=== PATIENT | female | born 1985 | race American Indian/Alaskan Native ===

== ENCOUNTER 2018-07-16 17:19 | Emergency (ER) | payer SELFPAY ==
[2018-07-16 17:27] VITALS: BP 122/59
[2018-07-16] MEDS ORDERED: Tetracaine HCl/PF 0.5% 4 ML Bottle EYEBOTH ONE (17:33)
[2018-07-16] MEDS ORDERED: Gentamicin 0.3% Ophth Soln 5 ML Bottle EYEBOTH ONE (17:34)
[2018-07-16] MEDS ORDERED: Fluorescein 1 MG Ophth Strip EYEBOTH ONE (17:35)
[2018-07-16] MEDS ORDERED: Acetaminophen/HYDROcodone 325-10 MG Tab PO ONE (17:48)
--- NOTE | 2018-07-16 18:01 | EDM.PDOC ---
Scribed by Donna Ellis 07/16/18 2882 for Nickolas Patricia MD ED HPI GENERAL MEDICAL PROBLEM - General Chief Complaint: Eye Problems Stated Complaint: CONTACT STUCK IN EYE Time Seen by Provider: 07/16/18 17:23 Source of Information: Reports: Patient, RN, RN Notes Reviewed History Limitations: Reports: No Limitations - History of Present Illness INITIAL COMMENTS - FREE TEXT/NARRATIVE: Patient presents to ER with complaint of contact lens stuck in both eyes overnight. Patient states that she obtained some blue tinted contacts from a cousin and decided to try them. she does not have a prescription for vision correction. She believes the contacts were to be worn during the day and removed each evening, but she fell asleep and forgot to remove them. She states that she dug after them and rubbed her eye excessively but could not fine the contacts. She now presents with eye irritation, swelling and pain. Quality: Reports: Ache, Burning Severity: Severe Improves with: Reports: None Worsens with: Reports: None Associated Symptoms: Reports: No Other Symptoms - Related Data Allergies Allergy/AdvReac Type Severity Reaction Status Date / Time No Known Allergies Allergy Verified 07/16/18 17:24 Home Meds: Home Meds . [No Known Home Meds] 07/16/18 [History] Social & Family History - Family History Family Medical History: Noncontributory - Living Situation & Occupation Living situation: Reports: with Family ED ROS GENERAL - Review of Systems Review Of Systems: ROS reveals no pertinent complaints other than HPI. ED EXAM GENERAL W FULL EYE - Physical Exam Exam: See Below Exam Limited By: No Limitations General Appearance: Alert, WD/WN, Anxious, Other (tearful) Eye Exam: Bilateral Eye: Conjunctival Injection, Corneal Abrasion, EOMI, PERRL, Other (patient unable to cooperate with visual acuity exam) Eyelids: Bilateral: Edema (bilateral upper and lower lid inflammation with pink/ mild erythema secondary to excessive rubbing), Lid Everted for Exam Conjunctiva & Sclera: Bilateral: Conjunctival Edema, Discharge (clear watery discharge), Injected, Other (no contact lens or other foreign body was found) Cornea Exam: Bilateral: Corneal Abrasion, Examined with Flourescein Extraocular Movements: Bilateral: Intact Pupils: Normal Accommodation Pupillary Size: Bilateral: 3 mm Posterior Chamber: Bilateral: Unable to Examine Nose: Normal Inspection Throat/Mouth: Normal Inspection Head: Atraumatic, Normocephalic Respiratory/Chest: No Respiratory Distress Neurological: Alert, Oriented, CN II-XII Intact, Normal Cognition, No Motor/ Sensory Deficits Psychiatric: Anxious Course - Vital Signs Last Recorded V/S: Last Vital Signs Temp 36.0 C 07/16/18 17:26 Pulse 108 H 07/16/18 17:26 Resp 15 07/16/18 17:26 BP 122/59 L 07/16/18 17:26 Pulse Ox 100 07/16/18 17:26 - Orders/Labs/Meds Meds: Medications Discontinued Medications Generic Name Dose Route Start Last Admin Trade Name Freq PRN Reason Stop Dose Admin Hydrocodone Bitart/Acetaminophen 1 tab 07/16/18 17:48 07/16/18 18:00 [place] 325-10 Mg PO 07/16/18 17:49 Not Given ONETIME ONE Fluorescein Sodium 1 mg 07/16/18 17:35 07/16/18 17:40 Ful-Aminta EYEBOTH 07/16/18 17:36 1 mg ONETIME ONE Administration Gentamicin Sulfate 1 ml 07/16/18 17:34 07/16/18 17:38 Garamycin 0.3% Ophth Soln EYEBOTH 07/16/18 17:35 1 ml ONETIME ONE Administration Tetracaine HCl 1 ml 07/16/18 17:33 07/16/18 17:38 Tetracaine 0.5% Steri-Unit Sarina EYEBOTH 07/16/18 17:34 1 ml ONETIME ONE Administration Departure - Departure Time of Disposition: 17:47 Disposition: Home, Self-Care 01 Condition: Fair Clinical Impression: Contact lens stuck, Episcleritis of both eyes Corneal abrasion Qualifiers: Encounter type: initial encounter Laterality: unspecified laterality Qualified Code(s): S05.00XA - Injury of conjunctiva and corneal abrasion without foreign body, unspecified eye, initial encounter - Discharge Information Instructions: Corneal Abrasion, Scleritis and Episcleritis Forms: ED Department Discharge Additional Instructions: RX: [place] 5mg/325mg.*DO NOT DRIVE WHILE UNDER THE INFLUENCE OF THIS MEDICATION. Gentamicin 0.3% opthalmic solution one drop into each eye 4 times a day for 5 days. Tetracaine opthalmic solution 1 drop into each eye every 4 hours as needed for pain. Do not use for more than 24 hours. [facility] [phone]. Do not rub your eyes. Wear sunglasses and avoid long light exposure. I have read and agree with the documentation that has been completed regarding this visit. By signing this record, I attest that the documentation was completed in my physical presence and is an accurate record of the encounter.
== END 2018-07-16 17:56 | disposition home or self-care (01) ==
LOC: DL.ED 17:19
DX: H18.823 Corneal disorder due to contact lens, bilateral (principal); H15.103 Unspecified episcleritis, bilateral; W22.8XXA Striking against or struck by other objects, initial encounter
CPT/HCPCS: 99283; A9270

== ENCOUNTER 2019-02-06 22:20 | Observation (INO) | payer SELFPAY ==
--- NOTE | 2019-02-06 22:48 | PCM.LDHP ---
L&D History of Present Illness - General Date of Service: 02/06/19 Admit Problem/Dx: Admission Diagnosis/Problem Admission Diagnosis/Problem Source of Information: Patient History Limitations: Reports: No Limitations - History of Present Illness Introduction:: 33-year-old at 37w1d (per 36 week ultrasound) from the [facility] with concerns for leaking of fluid. Patient has not had any regular care with this . She was seen on L&D on 01/29/2019 for [facility] clearance. At that time, her IOB labs were drawn and an ultrasound was done. Her last 3 babies were delivered via section. She does not have custody of any of her children. She admits to methamphetamine use during this . At her last visit, patient was noted to have BV and was prescribed Flagyl for 7 days. Patient is unsure if she has received this while in [facility]. She also tested positive for chlamydia. She is certain she has not received any shots for treatment. She also was positive for HCV. Patient states she has been negative in the past. She is also positive for GBS. Patient states that she has been using methamphetamine intermittently over the past several months to help her cope with having her children taken away. She states she was using 0-2 times per week. She denies any other drug use during this but admitted to THC use at her last visit. Patient states that she has noticed increased "leaking" over the past week. She states she mentioned this several times in [facility] but was not taken to the clinic so reported her water may have broken and was taken in tonight. Baby has been active. She has had some increased back pain over the past couple of weeks. No contractions. No vaginal bleeding. Patient does note that she is strongly considering giving her baby up for adoption but has not been able to meet with psychosocial rehabilitation counselor while incarcerated. - Related Data Allergies/Adverse Reactions: Allergies Allergy/AdvReac Type Severity Reaction Status Date / Time No Known Allergies Allergy Verified 02/06/19 22:33 Home Medications: Home Meds . 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: Musculoskeletal History: Reports: None Neurological History: Reports: None Psychiatric History: Reports: None Endocrine/Metabolic History: Reports: None Hematologic History: Reports: None Immunologic History: Reports: None Oncologic (Cancer) History: Reports: None Dermatologic History: Reports: None - Infectious Disease History Infectious Disease History: Reports: None - Past Surgical History Head Surgeries/Procedures: Reports: None Female Surgical History: Reports: Section Social & Family History - Family History Family Medical History: Noncontributory - Caffeine Use Caffeine Use: Reports: Coffee, Energy Drinks - Recreational Drug Use Recreational Drug Use: Yes Drug Use in Last 12 Months: Yes Recreational Drug Type: Reports: Amphetamines (Speed) Recreational Drug Use Frequency: Weekly Recreational Drug Route: Reports: Inhaled, Intravenous - Sexual History Sexual History: Reports: Multiple Partners, Sexually Active - Living Situation & Occupation Living situation: Reports: Other (Currently incarcerated; was in [place] working on obtained permanent housing) Occupation: Unemployed H&P Review of Systems - Review of Systems: Review Of Systems: See Below General: Reports: Fatigue HEENT: Reports: No Symptoms Pulmonary: Reports: No Symptoms Cardiovascular: Reports: No Symptoms Gastrointestinal: Reports: No Symptoms Genitourinary: Reports: Discharge Musculoskeletal: Reports: Back Pain Skin: Reports: No Symptoms L&D Exam - Exam Exam: See Below - OB Specific Heart Tones per Min: 140 Presentation: Vertex - Contreras Score Contreras Score Cervix Position: Posterior Contreras Score Consistency: Soft Contreras Score Effacement: 31-50% Contreras Score Dilation: Closed Contreras Score 's Station: -2 Contreras Score Total: 4 - Exam General: Alert, Oriented HEENT: Mucosa Moist & [place], Posterior Pharynx Clear Lungs: Clear to Auscultation, Normal Respiratory Effort Cardiovascular: Regular Rate, Regular Rhythm. No: Systolic Murmur, Diastolic Murmur Genitourinary: Normal external exam Extremities: No Pedal Edema Skin: Warm, Dry, Intact - Problem List (1) History of delivery SNOMED Code(s): 308938461 ICD Code: Z98.891 - HISTORY OF UTERINE SCAR FROM PREVIOUS SURGERY Status: Acute Current Visit: Yes (2) with plans to adopt out baby SNOMED Code(s): 57037340 ICD Code: Z34.90 - ENCNTR FOR SUPRVSN OF NORMAL , UNSP, UNSP TRIMESTER Status: Acute Current Visit: Yes (3) Grand multipara in labor in third trimester SNOMED Code(s): 758541412, 231148059 ICD Code: O09.43 - SUPRVSN OF W GRAND MULTIPARITY, THIRD TRIMESTER Status: Acute Current Visit: Yes (4) Chlamydia infection affecting in third trimester SNOMED Code(s): 3117724359956 ICD Code: O98.813 - OTH MATERNAL INFEC/PARASTC DISEASES COMP PREG, THIRD TRI ; A74.9 - CHLAMYDIAL INFECTION, UNSPECIFIED Status: Acute Current Visit: Yes (5) HCV antibody positive SNOMED Code(s): 824166280 ICD Code: R76.8 - OTHER SPECIFIED ABNORMAL IMMUNOLOGICAL FINDINGS IN SERUM Status: Acute Current Visit: Yes (6) GBS (group B Streptococcus carrier), +RV culture, currently SNOMED Code(s): 3368081867572, 612631886, 1487201443382 ICD Code: O99.820 - STREPTOCOCCUS B CARRIER STATE COMPLICATING Status: Acute Current Visit: Yes (7) Rubella immune SNOMED Code(s): 671999785 ICD Code: Z78.9 - OTHER SPECIFIED HEALTH STATUS Status: Acute Current Visit: Yes (8) care: poor obstetric history SNOMED Code(s): 185722241 ICD Code: O09.299 - SUPRVSN OF PREG W POOR REPRODCTV OR OBSTET HISTORY, UNSP TRI Status: Acute Current Visit: No (9) Bacterial vaginosis SNOMED Code(s): 386263830 ICD Code: N76.0 - ACUTE VAGINITIS; B96.89 - OTH BACTERIAL AGENTS THE CAUSE OF DISEASES CLASSD ELSWHR Status: Acute Current Visit: No (10) Drug use affecting in third trimester SNOMED Code(s): 54394049, 80217091, 101531413 ICD Code: O99.323 - DRUG USE COMPLICATING , THIRD TRIMESTER Status : Acute Current Visit: No Problem List Initiated/Reviewed/Updated: Yes Assessment/Plan Comment:: 33-year-old at 37w1d (per 36 week ultrasound) presenting with concern for vaginal leaking Nitrazine was negative on examination. I suspect that discharge is due to normal discharge, BV, chlamydia. Wet prep and urinalysis were obtained. FHT Category 2 but reassuring. Will treat with 1 gram oral azithromycin and 250 mg IM Rocephin. Will given 1 L LR IV and monitor baby. No contractions noted so not in active labor. Will monitor overnight and contact psychosocial rehabilitation counselor in the morning. Angelique Kahn MD
[2019-02-06] MEDS ORDERED: Lactated Ringers 1,000 ML IV ONE (23:07)
[2019-02-06] MEDS ORDERED: Sodium Chloride 0.9% 10 ML Syringe FLUSH PRN (23:07)
[2019-02-06] MEDS ORDERED: Azithromycin 250 MG Tab PO ONE (23:13)
[2019-02-06] MEDS ORDERED: cefTRIAXone 250 MG, Lidocaine 1% 0.9 ML IM ONE ×2 (23:13)
[2019-02-06] MEDS ORDERED: Acetaminophen 325 MG Tab PO PRN (23:13)
[2019-02-06] MEDS ORDERED: hydrOXYzine HCl 25 MG Tab PO ONE (23:13)
[2019-02-06] MEDS ORDERED: Lactated Ringers 1,000 ML IV SCH (23:15)
[2019-02-07] MEDS ORDERED: metroNIDAZOLE 250 MG Tab PO SCH (09:00)
[2019-02-07 09:04] VITALS: BP 110/60
--- NOTE | 2019-02-08 13:45 | DISCH ---
ADMITTING DIAGNOSES: 1. History of section. 2. with plan to adopt out baby. 3. Grand multipara in labor in third trimester. 4. Chlamydia infection affecting in third trimester. 5. HCV antibody positive. 6. GBS positive, currently . 7. Rubella immune. 8. care for obstetrical history. 9. Bacterial vaginosis. 10.Drug use affecting in third trimester. 11. 9, para 8-0-0-7, estimated date of conception 02/25/2019, via ultrasound in January. She is noted to be 37 weeks 2 days' gestation per 36 week ultrasound. DISCHARGE DIAGNOSES: 1. History of section. 2. with plan to adopt out baby. 3. Chlamydia infection affecting in third trimester. 4. HCV antibody positive. 5. GBS positive, currently . 6. Rubella immune. 7. care for obstetrical history. 8. Bacterial vaginosis. 9. Drug use affecting in third trimester. 10. 9, para 8-0-0-7, estimated date of conception 02/25/2019, via ultrasound in January. She is noted to be 37 weeks 2 days' gestation per 36 week ultrasound. BRIEF HISTORY: The patient is a 33-year-old, 9, para 8, at 37 week 1 day gestation, who presented from [facility] with concerns of leakage of fluid. The patient has not had any regular care. She was seen by Labor and Delivery on 01/29/2019 for [facility] clearance. At that time, her initial OB labs were drawn and ultrasound was done. Her previous 3 babies were delivered via C- section. She does not have custody of any of her children. She admits to methamphetamine use during this . At the prior visit, she was noted to have BV and was prescribed Flagyl for 7 days. She is also tested positive for chlamydia. She is also had an HCV positive antibody screen as well as tested positive GBS positive during this . The patient also has reported use of methamphetamine intermittently during this and denies all other drug use, but did admit to THC use at her last visit. Upon admission, she states that she had noticed increased leaking over the past week and mentioned this several times in [facility], but was not taken to the clinic, so she told them that her water broke and was taken last night. She endorses active movement. She has also noticed some increased back pain, but denies contractions or vaginal bleeding. HOSPITAL COURSE: The patient was admitted for observation overnight. Overnight, patient did well. The patient endorses active movement, no contractions, no recurrence of leakage or vaginal bleeding. She does endorse able to tolerate ambulation, eating general diet appropriate, stooling and urination. She denies any fevers, chills, chest pain, headache, shortness of breath, continued abdominal pain. She does endorse some trace swelling in her ankles bilaterally. DISCHARGE CONDITION: Good. DISCHARGE PHYSICAL EXAMINATION: Vital Signs: Temp 98.2, HR 84 BPM, BP 110/60, RR 18 breaths per minute, O2 sat 97% on room air. HEENT: Grossly normal. Pupils equal, round, and reactive to light and extraocular movements intact. Pulmonary: Lungs are clear to auscultation bilaterally. Cardiovascular: Regular rate and rhythm. No murmurs noted. Abdomen: Soft, nontender, and nondistended. Gravid uterus palpated about 36 cm above the umbilicus. Extremities: Trace swelling noted in lower extremities bilaterally. Denies tenderness to palpation of calves bilaterally. Skin: No rashes noted. Neurologic: Grossly normal. LABORATORY DATA: Recent lab results: Urinalysis: Color yellow, appearance slightly cloudy, pH 8, specific gravity 1.015, protein negative, glucose negative, ketones negative, occult blood negative, nitrite negative, bilirubin negative, urobilinogen 1, leukocyte esterase moderate, RBC not seen, WBC 5-10, epithelial cells moderate, bacteria moderate. Clue cells are present. Toxicology: Completely negative. Clue cells are present. DISPOSITION: Discharge home. DISCHARGE MEDICATION: Flagyl 500 mg b.i.d. FOLLOWUP: The patient was instructed to follow up with Dr. Angelique Kahn on February 10 at 1:30 p.m. She is instructed to arrive at 1:00 p.m. The patient's questions were answered, and she is in agreement with this plan. Social work was consulted to work with patient to arrange possible adoption. The patient was seen and evaluated today by myself and Dr. Angelique Kahn. Discharge evaluation is under advisement of Dr. Angelique Kahn. MODL /[id number] Patient was personally seen and examined with the medical student. I reviewed the noted scribed on my behalf and necessary changes have been made to reflect my opinion on the history, exam, assessment, and plan. Angelique Kahn MD [facility]ITAL[facility]
== END 2019-02-07 10:45 | disposition home or self-care (01) ==
LOC: DL.OBCHECK 22:20 → DL.MS 22:52 → DL.OB 22:56
PROVIDERS: ADMIT Family Medicine; ATTEND Family Medicine
DX: O98.813 Other maternal infectious and parasitic diseases complicating pregnancy, third trimester (principal); A74.9 Chlamydial infection, unspecified; O99.820 Streptococcus B carrier state complicating pregnancy; O98.513 Other viral diseases complicating pregnancy, third trimester; Z3A.37 37 weeks gestation of pregnancy; O99.323 Drug use complicating pregnancy, third trimester; F15.90 Other stimulant use, unspecified, uncomplicated
CPT/HCPCS: 80305; 81001; 87210; 87522; A9270; J0696; J7050; J7120; 36415

== ENCOUNTER 2019-02-24 19:54 | Inpatient (IN) | payer MEDICAID ==
[2019-02-24] MEDS: Lactated Ringers 1,000 ML IV SCH ×2 (20:20→21:05)
[2019-02-24] MEDS ORDERED: ceFAZolin 2 GM in Premix Bag 1 BAG IV ONE (20:29)
[2019-02-24] MEDS ORDERED: Citric Acid/Sodium Citrate Solution 30 ML Cup PO ONE (20:29)
[2019-02-24] MEDS ORDERED: Sodium Chloride 0.9% 10 ML Syringe FLUSH PRN (20:29)
[2019-02-24] MEDS ORDERED: Tranexamic Acid 1,000 MG in Sodium Chloride 0.9% 100 ML IV PRN ×2 (20:29→22:42)
[2019-02-24] MEDS ORDERED: Oxytocin/Normal Saline 30 UNIT/500 ML BAG IV SCH (20:30)
[2019-02-24] MEDS ORDERED: Lactated Ringers 1,000 ML IV SCH (20:30)
[2019-02-24] MEDS ORDERED: Oxytocin/Normal Saline 60 UNIT/1,000 ML BAG ONE (21:01)
[2019-02-24] MEDS ORDERED: Ondansetron 4 MG/2 ML SDV IV PRN (22:42)
[2019-02-24] MEDS ORDERED: Acetaminophen 325 MG Tab PO PRN (22:42)
[2019-02-24] MEDS ORDERED: ePHEDrine 50 MG/ML SDV IVPUSH PRN (22:42)
[2019-02-24] MEDS ORDERED: Misoprostol 400 MCG (4 X 100 MCG TAB) RECTAL PRN (22:42)
[2019-02-24] MEDS ORDERED: Naloxone 2 MG/2 ML Syringe IVPUSH PRN (22:42)
[2019-02-24] MEDS ORDERED: diphenhydrAMINE 50 MG/ML SDV IVPUSH PRN (22:42)
[2019-02-24] MEDS ORDERED: Carboprost Tromethamine 250 MCG/1 ML Amp IM ONE (22:42)
[2019-02-24] MEDS ORDERED: Acetaminophen/oxyCODONE 325-5 MG Tab PO PRN (22:42)
[2019-02-24] MEDS ORDERED: Methylergonovine 0.2 MG/1 ML Amp IM PRN (22:42)
[2019-02-24] MEDS ORDERED: Ketorolac 30 MG/ML SDV IVPUSH SCH (22:45)
[2019-02-24] MEDS ORDERED: Misoprostol 400 MCG (4 X 100 MCG TAB) ONE (22:56)
--- NOTE | 2019-02-25 00:34 | HP ---
CHIEF COMPLAINT: Rupture of membranes. HISTORY OF PRESENT ILLNESS: Laura is a 33-year-old female, -0-0-7, at 38 weeks and 6 days gestation based on 36-week ultrasound. The patient presented to Labor and Delivery today with contractions, back pain, and leakage of fluid. Fluid was meconium stained. The patient's history for this is significant for no care, history of low-transverse x3, HSIL on Pap smear not treated, meth use during , asthma. Patient also had chlamydia and BV earlier this month, test of cure for chlamydia has not been completed yet. Patient is Hep C positive. The patient has used Tylenol, Benadryl, Azithromycin, Rocephin, Flagyl, meth, and has been smoking during this . The patient denies any headaches, vision changes, chest pain, or shortness of breath. The patient has not had any vaccines during . GBS positive, O+ blood, rubella immune. Planning to give custody to the father of the baby and his current girlfriend. PAST OBSTETRICAL HISTORY: 1. Male born on 02/22/2002, at 40 weeks gestation 0 days. Spontaneous vaginal delivery. Weighing 3629 g. 2. Term female born on 08/16/2003, at 40 weeks and 0 days via spontaneous vaginal delivery, weighed 3600 g. 3. Term female born on 10/30/2006, at 40 weeks 0 days gestation via spontaneous vaginal delivery. Baby at 2 months old from pneumonia. 4. Term male infant born on 10/19/2007, at 40 weeks 0 days gestation via spontaneous vaginal delivery. 5. Term female infant born on 08/25/2009, at 40 weeks 0 days gestation via spontaneous vaginal delivery complicated by anemia. 6. Male infant born on 01/12/2011, complicated by placental abruption, delivered via low transverse . 7. Male term infant born at 39 weeks and 0 days on 01/17/2011, via low- transverse . MEDICATIONS: Tylenol and Benadryl. ALLERGIES: No known allergies. PAST MEDICAL HISTORY: 1. HSIL on Pap smear of the cervix, untreated. Showed ROBBIN 2. 2. Illicit drug use. 3. Asthma. 4. Hep C. positive. 5. History of STD 6. History of high risk - c-sec x3; placental abruption in prior . PAST SURGICAL HISTORY: 1. Low-transverse x3. 2. Cholecystectomy. FAMILY HISTORY: Maternal grandmother, hypertension, heart attack, diabetes, from alcoholic cirrhosis; mom is healthy; dad's side of the family has a history of cancer, but she is unsure of what type of cancer and if her dad has anything. SOCIAL HISTORY: The patient is living in [place] with her mom, mom's boyfriend, 3 brothers, uncle, grandpa. The patient is not working at the moment. The patient's current baby is going to live with the baby's father and his girlfriend. The patient just got out of residential on Sunday, she was in residential for 8 days "for warrant for her other kids." Unsure of why she had to go to residential for that. LABORATORY DATA: White blood cells 11.4, red blood cells 5.31, hemoglobin 9, hematocrit 31.8, MCV 59.9. OBJECTIVE: Vital Signs: Temp 98.7; Pulse 69; BP 124/68; respiratory rate 16. General: Alert and cooperative, obviously feeling contractions. HEENT: Grossly normal. Respiratory: Lungs are clear to auscultation bilaterally. Cardiac: Regular rate and rhythm. No murmurs noted. GI: Gravid. Nontender to palpation. : Cervix is 4 cm dilated, 95%, BOWI, Vertex. Extremities: +1 lower extremity edema bilaterally. Skin: warm, dry appropriate for race. ASSESSMENT: 1. No care. 2. -0-0-7 at 38 weeks 6 days gestation via 36-week ultrasound. 3. Methamphetamine use during . 4. Smoking during . 5. History of x3. 6. Hep C positive 7. Chlamydia positive in . 8. BV positive in . 9. GBS positive, rubella immune, blood type O+. PLAN: Planning on taking the patient to a repeat . The patient was seen by myself and Dr. Sylvia Addison. Assessment and plan are under advisement of Dr. Sylvia Addison. Alexy Oden MS-III [facility] /[id number] Patient seen and examined. Agree with note as scribed on my behalf by Alexy Keller, MS 3.-03/14/19 [facility]
[2019-02-25] MEDS: Lactated Ringers 1,000 ML IV SCH ×4 (02:00→17:25)
--- NOTE | 2019-02-25 02:19 | OR ---
DATE: 02/24/2019 PROCEDURE PERFORMED: Repeat low transverse section. PREPROCEDURE DIAGNOSES: 1. 39 and 5/7th weeks based on 36-week ultrasound due to unknown last menstrual period. 2. 9, para 8-0-0-7. 3. Spontaneous rupture of membranes. 4. Meconium-stained fluid. 5. Group B Strep positive, blood type O positive, rubella immune. 6. Asthma, currently controlled. 7. Anemia of , admission Hgb of 9 prior to IV fluids. 8. History of section x3. 9. complicated by infections with Trichomonas and bacterial vaginosis, both treated. 10.Methamphetamine and marijuana abuse with most recent use of methamphetamine in the past 2 to 3 days. 11.No care. 12.History of high-grade squamous intraepithelial lesion on previous Pap smear, further evaluation not completed per records available. 13.Category 3 contraction stress test. POSTPROCEDURE DIAGNOSES: 1. 39 and 5/7th weeks based on 36-week ultrasound due to unknown last menstrual period. 2. 9, para 8-0-0-7. 3. Spontaneous rupture of membranes. 4. Meconium-stained fluid. 5. Group B Strep positive, blood type O positive, rubella immune. 6. Asthma, currently controlled. 7. Anemia of . 8. History of section x3. 9. complicated by infections with Trichomonas and bacterial vaginosis, both treated. 10.Methamphetamine and marijuana abuse with most recent use of methamphetamine in the past 2 to 3 days. 11.No care. 12.History of high-grade squamous intraepithelial lesion on previous Pap smear, further evaluation not completed per records available. 13.Category 3 contraction stress test. 14.Delivery of term female plus uterine window approximately 4 cm in diameter on the maternal right-hand side, plus meconium staining of the amniotic membranes and even some staining of the uterus. 15.Suspicion for placental abruption. SURGEON: Sylvia Mckeon MD. ASSISTANTS: 1. Filling And Packing Supervisor: Flavio Ruiz M.D. 2. Second Magnaflux Operator: Alexy Oden MS-III. ANESTHESIA: Spinal. CONSENT: Discussed with the patient the indications, risks, benefits, and alternatives of repeat low transverse section including risk of bleeding to the point of requiring blood transfusion, as well as its inherent risk and possibility for transfusion reaction or contraction of blood borne disease. Discussed risk of infection and plan for preoperative antibiotics. Discussed risk of injury to internal organs and adjacent structures including but not limited to bowel, bladder, uterus, baby, fallopian tubes, ovaries, any other internal organs, adjacent structures, large blood vessels, nerves, or veins. The patient's questions were answered and appropriate consent forms were signed and can be found in the chart. PROCEDURE DETAILS: The patient was brought down to the operating room and spinal anesthesia obtained. She was laid in the dorsal supine position with leftward tilt and a Guo indwelling catheter was placed. Abdomen was prepped and sterile drapes applied in the usual fashion. A skin incision was made at 2140 hours and carried down to the underlying fascia with cautery dissection. Fascia was then using cautery and superior fascial edge grasped with Ana Lilia's, tented up, and rectus muscles dissected off bluntly and with cautery. Inferior fascial edge was then grasped with Ana Lilia's, tented up, and rectus muscles dissected off in similar fashion. The scarring of the peritoneal lining was quite thick and so this layer was carefully entered with cautery and once able dissected further with blunt traction. Alexy retractor was then placed and lower uterine segment inspected. There was an obvious uterine window just below the uterine peritoneal lining and partially below the previous bladder flap, which had scarred a little bit higher onto the uterus. The bladder flap was created with Metzenbaum scissors and smooth pickups, and once this was released, the window was remarkable for having only amniotic fluid sac present and no longer any sort of uterine tissue covering over it. The sac was easily ruptured with a finger and green amniotic fluid in copious amounts was noted. Baby was in OP position with the hands by the face. I had some difficulty getting the head to deliver without causing lower uterine segment tearing. Therefore, Dr. Ruiz helped to bring the head up through the hysterotomy site and baby delivered readily thereafter at 2149. 's mouth and nose were suctioned, and 3- vessel umbilical cord was doubly clamped, cut. Baby was taken over to the warmer for immediate evaluation. Umbilical cord sample was then obtained. It was noted that the placenta was starting to deliver as the baby was delivering and that the blood present was quite dark in color, giving increased suspicion for placental abruption in combination with the previous category 3 tracing. The placenta was noted to be large and intact. The membranes were meconium stained and removed with ring forceps. Uterus was then cleared of all clots and debris with a dry lap sponge. The hysterotomy site was closed with a running lock suture of 0 Vicryl bringing up the very thin, what was previously bladder flap scar tissue essentially up against the lower uterine segment and this layer was noted to be hemostatic. The Alexy retractor was then removed, and the pericolic gutters were cleared of all clots and debris. Hysterotomy site was reinspected and remained hemostatic. The peritoneal lining and rectus muscles were brought together at the base with a single [id number] suture with good reapproximation. This layer was then irrigated and the fascia closed with a running stitch of 0 looped PDS in the usual fashion. Subcutaneous tissues were irrigated and any small bleeders controlled with cautery. Skin was closed with pushpa at 2210 hours. The patient tolerated the procedure well. COMPLICATIONS: None. URINE OUTPUT: Clear, chas, 125 mL. ESTIMATED BLOOD LOSS: 600 mL. FLUIDS: 1800 mL of crystalloids, 200 mL with Pitocin. DISPOSITION: Mother to go to the PACU. Baby was taken down to the nursery. [facility] /[id number] MAURO
[2019-02-25] MEDS: Ketorolac 30 MG/ML SDV IVPUSH SCH ×3 (04:32→17:17)
[2019-02-25] MEDS ORDERED: Furosemide 20 MG/2 ML VIAL IVPUSH ONE ×2 (07:30→18:15)
[2019-02-25] MEDS: Simethicone 80 MG Tab.Chew PO SCH ×4 (08:26→21:57)
[2019-02-25] MEDS: Prenatal Multivitamin with Calcium/Folic Acid/Iron Tab PO SCH (08:26)
[2019-02-25] MEDS ORDERED: Oxytocin/Normal Saline 30 UNIT/500 ML BAG IV ONE (10:30)
--- NOTE | 2019-02-25 11:25 | PN ---
DATE: 02/25/2019 SUBJECTIVE: Laura Hall is postoperative day #1 from repeat low-transverse C - section with delivery of a term female infant at 38 weeks and 6 days via 36-week ultrasound. Her complaint overnight was an itchy face. The patient's was only about 6 hours before seeing her this morning so she has not had any activity yet. She has been drinking some fluids, had some nausea and vomiting after drinking fluids too quickly. Urinary catheter is still in place. Her urine is concentrated and there is only a small amount. She has not passed any gas or bowel movements. She is having very minimal cramping and minimal bleeding. OBJECTIVE: Vital Signs: Temperature 99.1, pulse rate 85, blood pressure 119/75, respiratory rate 16. General: The patient is alert, cooperative, no acute distress. HEENT: Grossly normal. Heart: Regular rate and rhythm. Lungs: Clear to auscultation bilaterally. Abdomen: Uterus is palpated at the umbilicus. Soft abdomen. Nontender and nondistended. Extremities: No edema or erythema. Calves are nontender to palpation. Compression stockings are present. Neurologic: Range of motion and strength in extremities are unremarkable. LABORATORY DATA: White blood cells 12.7; red blood cells 3.78, down from 5.31 on admission; hemoglobin down to 6.5 from 9 on admission; hematocrit 23.1, down from 31.8 on admission. Urine protein 100, urine ketones 40, small amount of occult blood in the urine, nitrite positive, leukocyte esterase negative. Additional fluid boluses over night with only about 40cc of urine output. ASSESSMENT: Laura is postoperative day #1 from repeat low-transverse section of term female infant at 38 weeks and 6 days gestation with anemia and low urine output. 1. Post-op day #1 Repeat low transverse section. 2. Uterine window 3. Anemia of , suspect chronic malnutrition. 4. Anemia of blood loss. 5. Methamphetamine abuse. 6. High risk social situation. 7. Smoker 8. H/O Chlamydia not yet had test of cure. 9. Desires permanent sterilization. PLAN: 1. Continue cares. 2. Gonorrhea and chlamydia sample have been taken. 3. We will transfuse 2 units of packed red blood cells that was cross typed and matched. 4. Give single dose lasix to help her UOP and with her blood transfusion. Continue to monitor renal function closely and evaluate further if not resolving. 5. Support her plan to returnt to chemical dependency treatment. 6. Plan for tubal papers to be signed and referral made at her post-op appointment. The patient was seen by myself and Dr. Sylvia Addison. Assessment and plan are under advisement of Dr. Addison. [facility] /[id number] Patient seen and examined. Agree with note as scribed on my behalf by Alexy Oden, MS 3. -sporting goods sales manager 02/28/19 0601 MTDValarie
[2019-02-25] MEDS ORDERED: Lactated Ringers 1,000 ML IV ONE (16:30)
[2019-02-25] MEDS: ceFAZolin 1 GM in Premix Bag 1 BAG IV SCH ×2 (17:09→21:55)
[2019-02-25] MEDS ORDERED: Ibuprofen 800 MG Tab PO PRN (19:42)
[2019-02-25 20:35] LABS: ANION GAP 13.9; CHLORIDE,CL 100 mmol/L (101-111); SODIUM,NA 131 mmol/L (135-145)
[2019-02-25] MEDS: Docusate Sodium 100 MG Cap PO PRN (21:57)
[2019-02-26] MEDS: Ibuprofen 800 MG Tab PO PRN ×2 (03:24→15:10)
[2019-02-26] MEDS: Acetaminophen/oxyCODONE 325-5 MG Tab PO PRN ×4 (03:26→21:12)
[2019-02-26] MEDS: ceFAZolin 1 GM in Premix Bag 1 BAG IV SCH ×3 (05:56→21:59)
[2019-02-26] MEDS: Docusate Sodium 100 MG Cap PO PRN ×2 (08:51→21:11)
[2019-02-26] MEDS: Prenatal Multivitamin with Calcium/Folic Acid/Iron Tab PO SCH (08:51)
[2019-02-26] MEDS: Ferrous Sulfate 325 MG Tab PO SCH ×2 (08:51→18:50)
[2019-02-26] MEDS: Simethicone 80 MG Tab.Chew PO SCH ×4 (08:53→21:11)
--- NOTE | 2019-02-26 09:15 | PN ---
DATE: 02/26/2019 SUBJECTIVE: Laura is postop day #2 from repeat low-transverse with delivery of a term female infant at 38 weeks and 6 days via 36-week ultrasound. Her only complaint overnight is that she does have some pain in her incisional area when she coughs. Admits to not using her incentive spirometer much. She has been tolerating activity, eating a normal diet, drinking fluids, and passing flatus. No bowel movements yet. Her urinary catheter is still in place. Her urine output has increased greatly after receiving more Lasix last evening. Her urine is clear and light yellow now. She is having very minimal cramping and minimal bleeding. She denies any shortness of breath, chest pain, headaches, or visual changes. There was some bacteria in her urine and nitrites, so Ancef was given. The patient received 2 units of packed red blood cells yesterday for a hemoglobin of 6.5, she is doing well after the transfusion. Second dose of lasix was given last night. First dose only helped for a few hours, now her UOP is remaining good. OBJECTIVE: Vital Signs: Temp 97.1, pulse 76, blood pressure 113/67, and respiratory rate 16. General: The patient is alert, cooperative, no acute distress. HEENT: Grossly normal. Heart: Regular rate and rhythm. Lungs: Crackles on auscultation bilaterally. Abdomen: Uterus is palpated below the umbilicus. Soft abdomen. Nontender and nondistended. incision is covered; bandage is clean and dry. Extremities: No edema or erythema. Calves are nontender to palpation. Compression stockings are on at this time. Neurologic: Range of motion and strength in extremities are unremarkable. LABORATORY DATA: Today, hemoglobin 7.5. Hemoglobin yesterday, after blood transfusion, was 7.8; before blood transfusion was 6.5, and on admission was 9. Red blood cells 3.85 today and after transfusion yesterday, 3.99. Hematocrit today 25.4 and platelet count 246. Na 131; Ca 7.9; Albumin 2.1. ASSESSMENT: Laura is postoperative day #2 from repeat low-transverse of a term female at 38 weeks and 6 days' gestation. 1. Post-op day #1 Repeat low transverse section. 2. Uterine window 3. Anemia of , suspect chronic malnutrition. 4. Anemia of blood loss. Improved post transfusion. 5. Methamphetamine abuse. 6. High risk social situation. 7. Smoker 8. H/O Chlamydia not yet had test of cure. 9. Desires permanent sterilization. 10. Protein malnutrition. 11. Atelectasis. PLAN: 1. Continue cares. 2. Waiting on gonorrhea and chlamydia results. 3. High protein diet for protein malnutrition. 4. Educated patient on the importance of using the incentive spirometer every 2 hours. 5. Will check Hb in the morning. 6. Advised patient to hold incision while coughing to decrease pain when coughing. The patient was seen by myself and Dr. Sylvia Addison. Assessment and plan are under advisement of Dr. Addison. Alexy Oden MS-III MOD /[id number] Patient seen and examined. Agree with note as scribed on my behalf by Alexy Oden, 3. -[facility] 02/28/19 0605 MTDD
[2019-02-27] MEDS: Acetaminophen/oxyCODONE 325-5 MG Tab PO PRN ×2 (02:28→06:10)
[2019-02-27] MEDS: Ibuprofen 800 MG Tab PO PRN (02:28)
[2019-02-27] MEDS: ceFAZolin 1 GM in Premix Bag 1 BAG IV SCH (06:09)
[2019-02-27] MEDS: Prenatal Multivitamin with Calcium/Folic Acid/Iron Tab PO SCH (08:51)
[2019-02-27] MEDS: Simethicone 80 MG Tab.Chew PO SCH (08:51)
[2019-02-27] MEDS: Ferrous Sulfate 325 MG Tab PO SCH (08:51)
[2019-02-27] MEDS: Docusate Sodium 100 MG Cap PO PRN (08:51)
[2019-02-27] MEDS ORDERED: Ondansetron 4 MG/2 ML SDV IV ONE (11:53)
[2019-02-27] MEDS ORDERED: Morphine PF 1 MG/ML Amp ONE (11:53)
[2019-02-27] MEDS ORDERED: Dexamethasone 4 MG/ML SDV IV ONE (11:53)
[2019-02-27] MEDS ORDERED: Ketorolac 30 MG/ML SDV IVPUSH ONE (11:53)
[2019-02-27] MEDS ORDERED: Lactated Ringers 1,000 ML IV ONE (11:53)
[2019-02-27 20:34] VITALS: BP 105/58; PULSE 72
--- NOTE | 2019-03-14 14:13 | DISCH ---
ADMITTING DIAGNOSES: 1. A 39-5/7 weeks' intrauterine based on 36-week ultrasound. 2. 9, para 8-0-0-7. 3. No care. 4. History of section x3. 5. Methamphetamine and history of marijuana abuse. 6. Trichomonas treated at 36 weeks. 7. Anemia of . 8. Dehydration. 9. Group B strep positive. Blood type O positive. Rubella immune. 10.High-grade squamous intraepithelial lesions on Pap smear. 11.Asthma, mild, intermittent. DISCHARGE DIAGNOSES: 1. A 39-5/7 weeks' intrauterine based on 36-week ultrasound. 2. 9, para 8-0-0-7. 3. No care. 4. History of section x3. 5. Methamphetamine and history of marijuana abuse. 6. Trichomonas treated at 36 weeks. 7. Anemia of . 8. Dehydration. 9. Group B strep positive. Blood type O positive. Rubella immune. 10.High-grade squamous intraepithelial lesions on Pap smear. 11.Asthma, mild, intermittent. 12.Suspected placental abruption noted at the time of delivery. 13. hemorrhage requiring Cytotec. 14.Anemia of blood loss. 15.Protein malnutrition. 16.Ongoing methamphetamine abuse. 17.Status post blood transfusion of 2 units. BRIEF HISTORY: A 33-year-old female with the above-listed diagnoses, presented to the hospital with onset of spontaneous labor, found to be 4 cm dilated and 95% effaced. She was taken urgently for section, which was carried out without immediate complication. She was noted to have a significant uterine window present and moderate amount of scar tissue. Blood that accompanied delivery of the placenta was noted to be dark, almost black and clotted, raising suspicion for placental abruption which she had a history of and she also had a positive drug screen with recent methamphetamine abuse, which would correlate clinically with small abruption. Post delivery, nurses expressed some large clots and she was given rectal Cytotec to help control the hemorrhage. HOSPITAL COURSE: Overall, the patient did well postoperatively. Her hemoglobin the next morning was 6.5, and she was given 2 units for blood transfusion that brought her hemoglobin up to 7.8 and then on discharge, it was stable at 7.5. She was ambulating, tolerating regular diet, passing flatus, and voiding without difficulties. Fluid status had been corrected. She required a couple of different fluid boluses to help with urine output after surgery and also 2 doses of Lasix, which she responded quite well to. I suspect much of her urine output and acute renal insufficiency were related to her significant dehydration. Also suspect that her chronic anemia and protein malnutrition are due to poor diet compounded by her methamphetamine abuse. The patient was reporting that her child is going to be given into custody of the father of the baby and his current girlfriend. She was also planning on entering a drug and alcohol treatment program after being discharged from the hospital. DISCHARGE PHYSICAL EXAMINATION: Vital Signs: Temperature is 98.7, pulse of 72, respiratory rate of 14, O2 saturations 96%, and blood pressure 120/76. HEENT: Grossly unremarkable. Heart: Regular without murmur. Lungs: Clear to auscultation bilaterally. Abdomen: Soft, nontender. Positive bowel sounds throughout. Incision was clean, dry, and intact with no active drainage or bleeding. Extremities: No edema, erythema, or tenderness noted. PERTINENT LABORATORY DATA: 1. Admission hemoglobin 9.0. Discharge hemoglobin 7.5. 2. Admission platelets 316, discharge platelets 246. 3. Renal panel performed because of insufficient urine output, sodium was 131, chloride 100, BUN normal at 14, creatinine 0.6, calcium 7.9, and albumin 2.1. 4. Urine drug screen positive for amphetamine and methamphetamine. 5. Retest of gonorrhea and chlamydia was negative. DISPOSITION: Home with her family. DISCHARGE MEDICATIONS: Percocet 5/325, 1-2 tablets every 4-6 hours as needed for pain, dispensed 30 with no refills; ibuprofen 800 mg every 8 hours as needed for pain; vitamin 1 daily; iron 325 mg twice daily; Colace 100 mg twice daily as needed for constipation. FOLLOWUP: The patient should be seen in approximately 10 days for staple removal and postoperative exam. She may choose to do this out at [facility] or to see me next door at [facility]. The patient also encouraged to pursue her plans to enter into drug and alcohol rehabilitation program. DISCHARGE INSTRUCTIONS: Advised reasons to return to clinic or hospital if any problems develop such as, but not limited to, fever, chills, foul-smelling drainage, discharge, increased bleeding, incisional concerns, or any other questions or problems that should arise. Her questions were answered and she was in agreement with the plan. [facility] /[id number] MAURO
== END 2019-02-27 11:30 | disposition home or self-care (01) | DRG 787 ==
LOC: DL.OBCHECK 19:54 → UNDOADMOB 19:57 → DL.MS 19:57 → DL.OB 19:57 → OBSVTOIN 21:46 → EEVIPCON 21:46
PROVIDERS: ADMIT Family Medicine; ATTEND Family Medicine
PROC: 10D00Z1 Extraction of Products of Conception, Low, Open Approach (ICD-10-PCS; principal; 2019-02-24)
DX: O77.0 Labor and delivery complicated by meconium in amniotic fluid (principal); O99.323 Drug use complicating pregnancy, third trimester; D62 Acute posthemorrhagic anemia; J98.11 Atelectasis; Z3A.38 38 weeks gestation of pregnancy; Z37.0 Single live birth; O99.333 Smoking (tobacco) complicating pregnancy, third trimester; F17.200 Nicotine dependence, unspecified, uncomplicated; O34.211 Maternal care for low transverse scar from previous cesarean delivery; O99.824 Streptococcus B carrier state complicating childbirth; O99.02 Anemia complicating childbirth; F15.10 Other stimulant abuse, uncomplicated; O25.2 Malnutrition in childbirth; F12.10 Cannabis abuse, uncomplicated; Z53.20 Procedure and treatment not carried out because of patient's decision for unspecified reasons
CPT/HCPCS: 01961; 36415; 36430; 51702; 59025; 80069; 80305-QW; 80307; 81001; 85025; 85027; 86850; 86900; 86901; 86920; 86922; 87491; 87591; A9270-GY; J0690; J1100; J1200; J1885; J1940; J2274; J2405; J2590; J7120; P9016

== ENCOUNTER 2021-11-02 12:48 | Emergency (ER) | payer SELFPAY ==
[2021-11-02 13:05] VITALS: BP 109/59; PULSE 108
--- NOTE | 2021-11-02 13:15 | EDM.PDOC ---
<LawSpencer M - Last Filed: 11/02/21 14:27> ED HPI GENERAL MEDICAL PROBLEM - General Stated Complaint: AMBULANCE Time Seen by Provider: 11/02/21 12:55 Source of Information: Reports: Patient History Limitations: Reports: No Limitations - History of Present Illness INITIAL COMMENTS - FREE TEXT/NARRATIVE: This 36 yo female patient was brought to the ED by [facility] due to lower abdominal pain. The patient reports her pain started yesterday and has gotten worse. The patient reports she has not taken anything for her pain and has not attempted to be seen in the Clinic. The patient reports she had a 3 months ago and had her "tubes tied" at that time. The patient reports she had a normal bowel movement yesterday and denies any urinary symptoms. The patient reports her abdomen does not look bloated. The patient has had a cholecystectomy and C section for abdominal surgeries. The patient denies any history of UTIs or kidney stones. The patient denies any drug or alcohol use. Onset Date: 11/01/21 Duration: Constant, Getting Worse Location: Reports: Abdomen (lower ) Quality: Reports: Ache, Sharp Severity: Severe Improves with: Reports: Other (lying down) Worsens with: Reports: Movement Treatments [employer]ING [employer]: Denies: Acetaminophen, NSAIDS Suprapubic Pain Score (Numeric/FACES): 10 - Related Data Allergies Allergy/AdvReac Type Severity Reaction Status Date / Time No Known Allergies Allergy Verified 02/06/19 22:33 Home Meds: Home Meds Acetaminophen [Tylenol] 650 mg PO Q6H PRN tablet 02/27/19 [Rx] Acetaminophen/oxyCODONE [Percocet 325-5 MG] 1 tab PO Q4H PRN #20 tablet 02/27/19 [Rx] Docusate Sodium [Colace] 100 mg PO Q12H PRN cap 02/27/19 [Rx] Ferrous Sulfate 325 mg PO BIDMEALS tablet 02/27/19 [Rx] Ibuprofen [Motrin] 800 mg PO Q8H PRN tablet 02/27/19 [Rx] Vit with Ca/FA/Iron [ Plus Iron] 1 each PO DAILY tablet 02/27/19 [Rx] Past Medical History HEENT History: Reports: Impaired Vision, Other (See Below) Other HEENT History: thyroglossal cyst Cardiovascular History: Reports: None Respiratory History: Reports: Asthma Gastrointestinal History: Reports: None Genitourinary History: Reports: STD CARPENTER PROTOTYPE History: Reports: Musculoskeletal History: Reports: None Neurological History: Reports: None Psychiatric History: Reports: Depression Endocrine/Metabolic History: Reports: None Hematologic History: Reports: Anemia Immunologic History: Reports: None Oncologic (Cancer) History: Reports: None Dermatologic History: Reports: None - Infectious Disease History Infectious Disease History: Reports: Hepatitis C - Past Surgical History Head Surgeries/Procedures: Reports: None GI Surgical History: Reports: Other (See Below) Other GI Surgeries/Procedures: gall stones removed Female Surgical History: Reports: Section Social & Family History - Family History Family Medical History: No Pertinent Family History - Caffeine Use Caffeine Use: Reports: Coffee, Soda - Living Situation & Occupation Living situation: Reports: Other (Currently incarcerated; was in [place] working on obtained permanent housing) Occupation: Unemployed ED ROS GENERAL - Review of Systems Review Of Systems: Comprehensive ROS is negative, except as noted in HPI. ED EXAM, GI/ABD - Physical Exam Exam: See Below Exam Limited By: No Limitations General Appearance: Alert, WD/WN, Moderate Distress Eyes: Bilateral: Normal Appearance, EOMI Ears: Normal External Exam, Normal Canal, Hearing Grossly Normal, Normal TMs Nose: Normal Inspection, Normal Mucosa, No Blood Throat/Mouth: Normal Inspection, Normal Lips, Normal Teeth, Normal Gums, Normal Oropharynx, Normal Voice, No Airway Compromise Head: Atraumatic, Normocephalic Neck: Normal Inspection, Supple, Non-Tender, Full Range of Motion Respiratory/Chest: No Respiratory Distress, Lungs Clear, Normal Breath Sounds, No Accessory Muscle Use, Chest Non-Tender Cardiovascular: Normal Peripheral Pulses, Regular Rate, Rhythm, No Edema, No Gallop, No JVD, No Murmur, No Rub GI/Abdominal Exam: Guarding, Rebound, Tender (lower abdomen) (Female) Exam: Deferred Rectal (Female) Exam: Deferred Back Exam: CVA Tenderness (L), CVA Tenderness (R) Extremities: Normal Inspection, Normal Range of Motion, Non-Tender, Normal Capillary Refill, No Pedal Edema Psychiatric: Normal Affect, Normal Mood Skin Exam: Warm, Dry, Intact, Normal Color, No Rash Lymphatic: No Adenopathy Course - Re-Assessments/Exams Free Text/Narrative Re-Assessment/Exam: 11/02/21 14:28 The patient was advised of the lab results. At this time, the patient had refuse d to allow nursing staff to start an IV. The patient agreed to have an IV started for contrast (CT) as well as for pain medication. Departure - Departure Disposition: DC/Tfer to [facility] 02 Clinical Impression: Appendicitis Qualifiers: Appendicitis type: acute appendicitis Acute appendicitis type: with generalized peritonitis Appendicitis gangrene presence: without gangrene Appendicitis perforation presence: unspecified whether perforation present Appendicitis abscess presence: without abscess Qualified Code(s): K35.20 - Acute appendicitis with generalized peritonitis, without abscess - Discharge Information Forms: Interfacility Transfer EMTALA <Cleveland Warren - Last Filed: 11/02/21 22:20> Course - Vital Signs Last Recorded V/S: Last Vital Signs Temp 96.9 F 11/02/21 13:04 Pulse 108 H 11/02/21 13:04 Resp 24 H 11/02/21 13:04 BP 109/59 L 11/02/21 13:04 Pulse Ox 99 11/02/21 13:04 - Orders/Labs/Meds Orders: Active Orders 24 hr Category Date Time Status CULTURE BLOOD [BC] Stat Lab 11/02/21 13:44 Received CULTURE URINE [RM] Stat Lab 11/02/21 13:55 Received Labs: Laboratory Tests 11/02/21 11/02/21 11/02/21 Range/Units 13:44 13:44 13:44 WBC 19.2 H (5.0-10.0) 10^3/uL RBC 5.98 H (4.2-5.4) 10^6/uL Hgb 11.5 L D (12.0-16.0) g/dL Hct 38.0 (37.0-47.0) % MCV 63.5 L (80-100) fL MCH 19.2 L (27.0-34.0) pg MCHC 30.3 L (33.0-35.0) g/dL Plt Count 448 D (150-450) 10^3/uL Neut % (Auto) 90.2 H (42.2-75.2) % Lymph % (Auto) 4.6 L (20.5-50.1) % [place] % (Auto) 5.0 (2-8) % Eos % (Auto) 0.1 L (1.0-3.0) % Baso % (Auto) 0.1 (0.0-1.0) % Sodium 135 L (136-145) mmol/L Potassium 4.0 (3.5-5.1) mmol/L Chloride 99 (98-107) mmol/L Carbon Dioxide 27 (21-32) mmol/L Anion Gap 13.0 (7-13) mEq/L BUN 10 (7-18) mg/dL Creatinine 0.70 (0.55-1.02) mg/dL Est Cr Clr Drug Dosing 110.12 mL/min Estimated GFR (MDRD) > 60 BUN/Creatinine Ratio 14.3 (No establ ref range) Glucose 103 H (70-99) mg/dL Lactic Acid 1.3 (0.4-2.0) mmol/L Calcium 8.9 (8.5-10.1) mg/dL Total Bilirubin 0.6 (0.2-1.0) mg/dL AST 15 (15-37) U/L ALT 15 (14-59) U/L Alkaline Phosphatase 148 H (46-116) U/L Total Protein 7.6 (6.4-8.2) g/dL Albumin 3.3 L (3.4-5.0) g/dL Globulin 4.3 Albumin/Globulin Ratio 0.77 Amylase 19 L (25-115) U/L Lipase 28 L (73-393) U/L Urine Color (YELLOW) Urine Appearance (CLEAR) Urine pH (5.0-9.0) Ur Specific Ralph (1.005-1.030) Urine Protein (NEGATIVE) Urine Glucose (UA) (NEGATIVE) Urine Ketones (NEGATIVE) Urine Occult Blood (NEGATIVE) Urine Nitrite (NEGATIVE) Urine Bilirubin (NEGATIVE) Urine Urobilinogen (0.2-1.0) mg/dL Ur Leukocyte Esterase (NEGATIVE) Urine RBC (0-5) /HPF Urine WBC (0-5/HPF) /HPF Ur Epithelial Cells (NOT SEEN) /HPF Amorphous Sediment (NOT SEEN) /HPF Urine Bacteria (0-FEW/HPF) /HPF Urine Mucus (NOT SEEN) /LPF Urine HCG, Qual Urine Opiates Screen (NEGATIVE) Ur Oxycodone Screen (NEGATIVE) Urine Methadone Screen (NEGATIVE) Ur Barbiturates Screen (NEGATIVE) U Tricyclic Antidepress (NEGATIVE) Ur Phencyclidine Scrn (NEGATIVE) Ur Amphetamine Screen (NEGATIVE) U Methamphetamines Scrn (NEGATIVE) Urine MDMA Screen (NEGATIVE) U Benzodiazepines Scrn (NEGATIVE) Urine Cocaine Screen (NEGATIVE) U Marijuana (THC) Screen (NEGATIVE) SARS-CoV-2 RNA (DESHAWN) (NEGATIVE) 11/02/21 11/02/21 11/02/21 Range/Units 13:55 13:55 13:55 WBC (5.0-10.0) 10^3/uL RBC (4.2-5.4) 10^6/uL Hgb (12.0-16.0) g/dL Hct (37.0-47.0) % MCV (80-100) fL MCH (27.0-34.0) pg MCHC (33.0-35.0) g/dL Plt Count (150-450) 10^3/uL Neut % (Auto) (42.2-75.2) % Lymph % (Auto) (20.5-50.1) % [place] % (Auto) (2-8) % Eos % (Auto) (1.0-3.0) % Baso % (Auto) (0.0-1.0) % Sodium (136-145) mmol/L Potassium (3.5-5.1) mmol/L Chloride (98-107) mmol/L Carbon Dioxide (21-32) mmol/L Anion Gap (7-13) mEq/L BUN (7-18) mg/dL Creatinine (0.55-1.02) mg/dL Est Cr Clr Drug Dosing mL/min Estimated GFR (MDRD) BUN/Creatinine Ratio (No establ ref range) Glucose (70-99) mg/dL Lactic Acid (0.4-2.0) mmol/L Calcium (8.5-10.1) mg/dL Total Bilirubin (0.2-1.0) mg/dL AST (15-37) U/L ALT (14-59) U/L Alkaline Phosphatase (46-116) U/L Total Protein (6.4-8.2) g/dL Albumin (3.4-5.0) g/dL Globulin Albumin/Globulin Ratio Amylase (25-115) U/L Lipase (73-393) U/L Urine Color Dark yellow (YELLOW) Urine Appearance Clear (CLEAR) Urine pH 6.5 (5.0-9.0) Ur Specific Ralph 1.025 (1.005-1.030) Urine Protein Negative (NEGATIVE) Urine Glucose (UA) Negative (NEGATIVE) Urine Ketones Negative (NEGATIVE) Urine Occult Blood Negative (NEGATIVE) Urine Nitrite Negative (NEGATIVE) Urine Bilirubin Negative (NEGATIVE) Urine Urobilinogen 1.0 (0.2-1.0) mg/dL Ur Leukocyte Esterase Trace H (NEGATIVE) Urine RBC 0-5 (0-5) /HPF Urine WBC 10-20 H (0-5/HPF) /HPF Ur Epithelial Cells Few (NOT SEEN) /HPF Amorphous Sediment Few (NOT SEEN) /HPF Urine Bacteria Few (0-FEW/HPF) /HPF Urine Mucus Few H (NOT SEEN) /LPF Urine HCG, Qual Negative Urine Opiates Screen Negative (NEGATIVE) Ur Oxycodone Screen Negative (NEGATIVE) Urine Methadone Screen Negative (NEGATIVE) Ur Barbiturates Screen Negative (NEGATIVE) U Tricyclic Antidepress Negative (NEGATIVE) Ur Phencyclidine Scrn Negative (NEGATIVE) Ur Amphetamine Screen Positive H (NEGATIVE) U Methamphetamines Scrn Positive H (NEGATIVE) Urine MDMA Screen Negative (NEGATIVE) U Benzodiazepines Scrn Negative (NEGATIVE) Urine Cocaine Screen Negative (NEGATIVE) U Marijuana (THC) Screen Negative (NEGATIVE) SARS-CoV-2 RNA (DESHAWN) (NEGATIVE) 11/02/21 Range/Units 21:05 WBC (5.0-10.0) 10^3/uL RBC (4.2-5.4) 10^6/uL Hgb (12.0-16.0) g/dL Hct (37.0-47.0) % MCV (80-100) fL MCH (27.0-34.0) pg MCHC (33.0-35.0) g/dL Plt Count (150-450) 10^3/uL Neut % (Auto) (42.2-75.2) % Lymph % (Auto) (20.5-50.1) % [place] % (Auto) (2-8) % Eos % (Auto) (1.0-3.0) % Baso % (Auto) (0.0-1.0) % Sodium (136-145) mmol/L Potassium (3.5-5.1) mmol/L Chloride (98-107) mmol/L Carbon Dioxide (21-32) mmol/L Anion Gap (7-13) mEq/L BUN (7-18) mg/dL Creatinine (0.55-1.02) mg/dL Est Cr Clr Drug Dosing mL/min Estimated GFR (MDRD) BUN/Creatinine Ratio (No establ ref range) Glucose (70-99) mg/dL Lactic Acid (0.4-2.0) mmol/L Calcium (8.5-10.1) mg/dL Total Bilirubin (0.2-1.0) mg/dL AST (15-37) U/L ALT (14-59) U/L Alkaline Phosphatase (46-116) U/L Total Protein (6.4-8.2) g/dL Albumin (3.4-5.0) g/dL Globulin Albumin/Globulin Ratio Amylase (25-115) U/L Lipase (73-393) U/L Urine Color (YELLOW) Urine Appearance (CLEAR) Urine pH (5.0-9.0) Ur Specific Ralph (1.005-1.030) Urine Protein (NEGATIVE) Urine Glucose (UA) (NEGATIVE) Urine Ketones (NEGATIVE) Urine Occult Blood (NEGATIVE) Urine Nitrite (NEGATIVE) Urine Bilirubin (NEGATIVE) Urine Urobilinogen (0.2-1.0) mg/dL Ur Leukocyte Esterase (NEGATIVE) Urine RBC (0-5) /HPF Urine WBC (0-5/HPF) /HPF Ur Epithelial Cells (NOT SEEN) /HPF Amorphous Sediment (NOT SEEN) /HPF Urine Bacteria (0-FEW/HPF) /HPF Urine Mucus (NOT SEEN) /LPF Urine HCG, Qual Urine Opiates Screen (NEGATIVE) Ur Oxycodone Screen (NEGATIVE) Urine Methadone Screen (NEGATIVE) Ur Barbiturates Screen (NEGATIVE) U Tricyclic Antidepress (NEGATIVE) Ur Phencyclidine Scrn (NEGATIVE) Ur Amphetamine Screen (NEGATIVE) U Methamphetamines Scrn (NEGATIVE) Urine MDMA Screen (NEGATIVE) U Benzodiazepines Scrn (NEGATIVE) Urine Cocaine Screen (NEGATIVE) U Marijuana (THC) Screen (NEGATIVE) SARS-CoV-2 RNA (DESHAWN) Negative (NEGATIVE) Meds: Medications Discontinued Medications Generic Name Dose Route Start Last Admin Trade Name Freq PRN Reason Stop Dose Admin Hydromorphone HCl 0.5 mg 11/02/21 14:29 11/02/21 15:48 Hydromorphone 0.5 Mg/0.5 Ml Syringe IVPUSH 11/02/21 14:30 Not Given ONETIME ONE Hydromorphone HCl 1 mg 11/02/21 17:59 11/02/21 19:21 Hydromorphone 1 Mg/Ml Syringe IM 11/02/21 18:00 1 mg ONETIME ONE Administration Piperacillin Sod/Tazobactam 100 mls @ 200 mls/hr 11/02/21 19:43 11/02/21 20:58 Sod 3.375 gm/ Sodium Chloride IV 11/02/21 20:12 200 mls/hr ONETIME ONE Administration Iopamidol 100 ml 11/02/21 14:25 11/02/21 18:22 Iopamidol 612 Mg/Ml 100 Ml Bottle IVPUSH 11/02/21 14:26 75 ml ONETIME ONE Administration - Re-Assessments/Exams Free Text/Narrative Re-Assessment/Exam: 11/02/21 22:17 Every surgical hospital in the [facility] was callled and is full. [place], [facility] [place] are both Full I spoke with Dr. Schultz at [facility] in [place] and he accepted the pt for transfer. Departure - Departure Time of Disposition: 22:18 Condition: Serious - Discharge Information *PRESCRIPTION DRUG MONITORING PROGRAM REVIEWED*: Not Applicable *COPY OF PRESCRIPTION DRUG MONITORING REPORT IN PATIENT JOSH: Not Applicable Sepsis Event Note (ED) - Focused Exam Vital Signs: Vital Signs Temp Pulse Resp BP Pulse Ox 11/02/21 13:04 96.9 F 108 H 24 H 109/59 L 99
[2021-11-02 14:09] LABS: CHLORIDE,CL 99 mmol/L (98-107); SODIUM,NA 135 mmol/L (136-145)
[2021-11-02 14:09] LABS: AMPHETAMINES,URINE POSITIVE (NEGATIVE); BARBITURATES,URINE NEGATIVE (NEGATIVE); BENZODIAZEPINE,URINE NEGATIVE (NEGATIVE); MDMA (ECSTASY), URINE NEGATIVE (NEGATIVE); METHADONE,URINE NEGATIVE (NEGATIVE); METHAMPHETAMINES,URINE POSITIVE (NEGATIVE); OPIATES,URINE NEGATIVE (NEGATIVE); OXYCODONE,URINE NEGATIVE (NEGATIVE); PHENCYCLIDINE,URINE NEGATIVE (NEGATIVE); TCA,URINE NEGATIVE (NEGATIVE)
[2021-11-02] MEDS: HYDROmorphone 0.5 MG/0.5 ML Syringe IVPUSH ONE ×2 (15:48→22:30)
[2021-11-02] MEDS: Iopamidol 612 MG/ML 100 ML Bottle IVPUSH ONE (18:22)
--- NOTE | 2021-11-02 19:00 | CT ---
PROCEDURE INFORMATION: Exam: CT Abdomen And Pelvis With Contrast Exam date and time: 11/02/2021 2:41 PM Age: 36 years old Clinical indication: Other: Lower abdominal pain TECHNIQUE: Imaging protocol: Computed tomography of the abdomen and pelvis with contrast. Radiation optimization: All CT scans at this facility use at least one of these dose optimization techniques: automated exposure control; mA and/or kV adjustment per patient size (includes targeted exams where dose is matched to clinical indication); or iterative reconstruction. Contrast material: ISOVUE 300; Contrast volume: 75 ml; Contrast route: INTRAVENOUS (IV); COMPARISON: CT ABDOMEN/PELVIS 11/23/2007 5:47 PM FINDINGS: Lungs: The visualized lung bases are unremarkable. No pleural effusion. Liver: There is a focal liver hypodensity that cannot be further characterized on the current examination but likely represents a simple cyst. The liver is otherwise unremarkable. Gallbladder and bile ducts: The gallbladder is surgically absent. Unremarkable post cholecystectomy biliary tree. Pancreas: The pancreas is within normal limits. Spleen: There is mild nonspecific splenomegaly. The spleen is otherwise unremarkable. Adrenal glands: The adrenal glands are normal. Kidneys and ureters: The kidneys are normal. Stomach and bowel: The stomach is within normal limits. Fluid-filled loops of small bowel throughout the abdomen, with wall thickening distally in the region of the uterus. There is fluid within the proximal colon. No bowel obstruction. Appendix: The appendix is mildly dilated measuring 9 mm distally. No calcified appendicolith. The tip is not visualized secondary to the inflammatory change in the pelvis and its proximity to the uterus. Intraperitoneal space: Small free fluid in the pelvis with moderate diffuse bilateral pelvic inflammatory fat stranding. No pneumoperitoneum. No rim enhancing fluid collection to suggest abscess. Vasculature: Unremarkable. No abdominal aortic aneurysm. Lymph nodes: No evidence of lymphadenopathy. Urinary bladder: Unremarkable as visualized. Reproductive: Unremarkable CT appearance of the uterus. No adnexal mass. Bones/joints: No acute fracture or dislocation. Soft tissues: The extra-abdominal soft tissues are unremarkable. IMPRESSION: 1. Inflammatory stranding and small free fluid throughout the pelvis bilaterally. The appendix is mildly dilated, but given the distribution of the inflammatory change, in addition to acute appendicitis, pelvic inflammatory disease should be considered. 2. Fluid-filled loops of bowel, with mild bowel wall thickening distally, may be secondary to the pelvic inflammation versus concurrent infectious enteritis.
[2021-11-02] MEDS: HYDROmorphone 1 MG/ML Syringe IM ONE (19:21)
[2021-11-02] MEDS: Piperacillin/Tazobactam 3.375 GM in Sodium Chloride 0.9% 100 ML IV ONE (20:58)
== END 2021-11-02 23:17 ==
LOC: DL.ED 12:48
DX: K35.20 Acute appendicitis with generalized peritonitis, without abscess (principal); J45.909 Unspecified asthma, uncomplicated; D64.9 Anemia, unspecified; Z90.49 Acquired absence of other specified parts of digestive tract; Z98.890 Other specified postprocedural states; Z79.899 Other long term (current) drug therapy; Z20.822 Contact with and (suspected) exposure to COVID-19
CPT/HCPCS: 36415; 74177; 80053; 80305; 81001; 81025; 82150; 83605; 83690; 85025; 87040; 87086; 87635; 96365; 96372; 96375; 99285; J1170; J2543; Q9967; U0002